=== PATIENT | male | born 1990 ===

== ENCOUNTER 2017-01-16 15:50 | Emergency (ER) | payer OTHER ==
[2017-01-16 15:55] VITALS: BP 128/79; PULSE 72; RESP 19; TEMP 98.7; O2SAT 97; BMI 37.4
[2017-01-16] MEDS ORDERED: Tetracaine 0.5% Ophth 2 ML BOTTLE OU STA (15:58)
[2017-01-16] MEDS ORDERED: Ciprofloxacin 0.3% OPTH SOLN OD STA (16:12)
--- NOTE | 2017-01-16 16:12 | ED PDOC ---
Arrival/HPI - General Chief Complaint: Eye Problem Time Seen by Provider: 01/16/17 15:57 Historian: Patient - History of Present Illness Narrative History of Present Illness (Text): 01/16/17 15:58 26 y/o male, last tetanus under 5 years ago, nkda, no eye surgery, doesn't wear glasses or contacts, c/o rt. eye foreign body sensation x 1 day. Pt. stated that he was at work, dust fly into the rt. eye, been having irritation, no change in vision, no night sweat, no dizziness, no rash, no numbness or tingling , no other medical or psychological complaints. Past Medical History - Provider Review Nursing Documentation Reviewed: Yes - Infectious Disease Hx of Infectious Diseases: None - Psychiatric Hx Substance Use: No - Anesthesia Hx Anesthesia: Yes Hx Anesthesia Reactions: No Family/Social History - Physician Review Nursing Documentation Reviewed: Yes Family/Social History: Unknown Family HX Smoking Status: Never Smoked Hx Alcohol Use: No Hx Substance Use: No Allergies/Home Meds Allergies/Adverse Reactions: Allergies No Known Allergies Allergy (Verified 01/16/17 15:57) Review of Systems - Review of Systems Constitutional: absent: Fatigue, Fevers Eyes: Other (rt. eye foreign body sensation) ENT: absent: Hearing Changes Respiratory: absent: Cough, Sputum Cardiovascular: absent: Chest Pain Gastrointestinal: absent: Abdominal Pain, Nausea, Vomiting Musculoskeletal: absent: Arthralgias, Back Pain Skin: absent: Rash, Pruritis, Skin Lesions Endocrine: absent: Diaphoresis Hemo/Lymphatic: absent: Adenopathy Psychiatric: absent: Anxiety, Depression, Suicidal Ideation Physical Exam Vital Signs Reviewed: Yes Vital Signs Temp Pulse Resp BP Pulse Ox 01/16/17 15:55 98.7 F 72 19 128/79 97 Temperature: Afebrile Blood Pressure: Normal Pulse: Regular Respiratory Rate: Normal Appearance: Positive for: Well-Appearing, Non-Toxic, Comfortable Pain Distress: Mild Mental Status: Positive for: Alert and Oriented X 3 - Systems Exam Head: Present: Atraumatic, Normocephalic Pupils: Present: PERRL, Other (Eyes: rt. eye without correction 20/30 vs. lt. eye without correction 20/30, bilateral eyes without correction 20/30, rt. eye corneal abrasion noted on the 11 to 12 o clock position, no hyphema or subconjunctival hemorrage, FREOM without limitation/entractment/gaze, negative rusty signs and no corneal laceration noted on the rt. eye. ) Extroacular Muscles: Present: EOMI Conjunctiva: Present: Normal Mouth: Present: Moist Mucous Membranes Neck: Present: Normal Range of Motion Respiratory/Chest: Present: Clear to Auscultation, Good Air Exchange. No: Respiratory Distress, Accessory Muscle Use Cardiovascular: Present: Regular Rate and Rhythm, Normal S1, S2. No: Murmurs Abdomen: Present: Normal Bowel Sounds. No: Tenderness, Distention, Peritoneal Signs Back: Present: Normal Inspection Upper Extremity: Present: Normal Inspection. No: Cyanosis, Edema Lower Extremity: Present: Normal Inspection. No: Edema Neurological: Present: GCS=15, CN II-XII Intact, Speech Normal Skin: Present: Warm, Dry, Normal Color. No: Rashes Psychiatric: Present: Alert, Oriented x 3, Normal Insight, Normal Concentration Medical Decision Making ED Course and Treatment: 01/16/17 16:15 -ciloxin, rt. eye patch. -Discharge home with ciloxin, eye patch, take tylenol or motrin for pain, avoid rubbing or touching the rt. eye, follow up with DR. Arenas tomorrow morning at his office or within 48 hours, follow up with your own pmd within 2 days, avoid rubbing or touching the rt. eye, return to the ER for any new or worsening signs or symptoms. 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 Disposition/Present on Arrival - Present on Arrival Any Indicators Present on Arrival: No History of DVT/PE: No History of Uncontrolled Diabetes: No Urinary Catheter: No History of Decub. Ulcer: No History Surgical Site Infection Following: None - Disposition Have Diagnosis and Disposition been Completed?: Yes Diagnosis: Corneal abrasion Disposition: HOME/ ROUTINE Disposition Time: 16:17 Patient Plan: Discharge Condition: IMPROVED Additional Instructions: Discharge home with ciloxin, eye patch, take tylenol or motrin for pain, avoid rubbing or touching the rt. eye, follow up with DR. Arenas tomorrow morning at his office or within 48 hours, follow up with your own pmd within 2 days, avoid rubbing or touching the rt. eye, return to the ER for any new or worsening signs or symptoms. Prescriptions: Ciprofloxacin 0.3% [Ciloxan 0.3% Ophth SOLN] 2 drop OD Q4 #1 bottle Referrals: Lenard Arenas MD [Staff Provider] - [place] [facility] [place] - Follow up with primary Forms: WORK NOTE
== END 2017-01-16 16:42 | disposition home or self-care (01) ==
LOC: ED 15:50
DX: S05.01XA Injury of conjunctiva and corneal abrasion without foreign body, right eye, initial encounter (principal); X58.XXXA Exposure to other specified factors, initial encounter